=== PATIENT | female | born 1980 | race African-American/Black ===

== ENCOUNTER 2025-07-22 00:22 | Emergency (ER) | payer MEDICAID ==
[~2025-07-22] VITALS: Ht 162.6 cm; Wt 56.7 kg
[2025-07-22] MEDS ORDERED: Naloxone Hydrochloride 2 MG/2 ML SYR NAS ONE (01:35)
[2025-07-22 04:52] LABS: BASO # 0.1 10*3/uL (0.0-0.1); BASO % 1.2 % (0.0-1.0); EOS # 0.1 10*3/uL (0.0-0.4); EOS % 0.9 % (1.0-4.0); MEAN CELL VOLUME 97.4 fl (81.0-99.0); MEAN CORPUSCULAR HGB 32.5 pg (27.0-31.0); MEAN PLATELET VOLUME 9.6 fl (9.6-12.3); MONO # 0.3 10*3/uL (0.1-1.0); MONO % 5.6 % (3.0-9.0); NEUT # 2.3 10*3/uL (2.3-7.9); NEUT % 40.3 % (47.0-73.0); NUCLEATED RED BLOOD CELL 0.0 % (0.0-0.0); NUCLEATED RED BLOOD CELL 0.0 10*3/uL (0.0-0.0); PLATELET COUNT AUTOMATED 299 10*3/uL (130-400); RED CELL DISTRI WIDTH 15.1 % (0-14.5)
[2025-07-22 05:10] LABS: BUN 11 mg/dl (9-23)
== END 2025-07-22 11:49 | disposition home or self-care (01) ==
LOC: ED 00:22
PROVIDERS: Internal Medicine
DX: F10.129 Alcohol abuse with intoxication, unspecified (principal); Y90.8 Blood alcohol level of 240 mg/100 ml or more; R45.1 Restlessness and agitation; R40.4 Transient alteration of awareness

== ENCOUNTER 2025-09-21 11:32 | Emergency (ER) | payer MEDICAID ==
[~2025-09-21] VITALS: Ht 157.4 cm; Wt 44.5 kg
[2025-09-21] MEDS ORDERED: SODIUM CHLORIDE 0.9% 1,000 ML IV ONE (12:00)
[2025-09-21] MEDS ORDERED: Ondansetron Hydrochloride 4 MG/2 ML VIAL IV ONE (12:00)
[2025-09-21] MEDS ORDERED: Lidocaine Hydrochloride 30 ML VIAL SC ONE (14:00)
[2025-09-21] MEDS ORDERED: HYDROCODONE-AC1 EAC1 PO (15:32)
[2025-09-21] MEDS ORDERED: NAPROSYN500 MG PO (15:32)
== END 2025-09-21 15:49 | disposition home or self-care (01) ==
LOC: ED 11:32
DX: S52.121A Displaced fracture of head of right radius, initial encounter for closed fracture (principal); W20.8XXA Other cause of strike by thrown, projected or falling object, initial encounter; Y93.89 Activity, other specified; Y92.89 Other specified places as the place of occurrence of the external cause; Y99.8 Other external cause status

== ENCOUNTER → 2025-10-17 | Outpatient (CLI) | payer MEDICAID ==
[~2025-10-17] MED LIST: HYDROCODONE-AC1 EAC1 PO; NAPROSYN500 MG PO; OXYCODONE-ACET1 EAC3 PO
== END | disposition home or self-care (01) ==
LOC: ORTHO 02:51
PROVIDERS: ATTEND Orthopaedic Surgery
DX: S52.371A Galeazzi's fracture of right radius, initial encounter for closed fracture (principal); X58.XXXA Exposure to other specified factors, initial encounter; Y93.89 Activity, other specified; Y92.89 Other specified places as the place of occurrence of the external cause; Y99.8 Other external cause status

== ENCOUNTER 2025-10-26 14:12 | Emergency (ER) | payer MEDICAID ==
[~2025-10-26] VITALS: Wt 46.3 kg
[2025-10-26] MEDS ORDERED: SODIUM CHLORIDE 0.9% 1,000 ML IV ONE ×3 (15:25→18:50)
[2025-10-26 15:30] LABS: BILIRUBIN Negative (Negative); BLOOD Trace-Lysed (Negative); CLARITY Cloudy (Clear); COLOR Yellow (Yellow); KETONE Negative (Negative); LEUKO ESTERASE 3+ (Negative); NITRITE Negative (Negative); PH 5.0 (4.5-8.0); SPECIFIC GRAVITY <= 1.005 (1.001-1.030); UROBILINOGEN 0.2 E.U./dl (0.0-1.0)
[2025-10-26 15:41] LABS: BACTERIA 3+; WBC 51-100 wbc/hpf (0-5)
[2025-10-26 15:52] LABS: MEAN CELL VOLUME 104.9 fl (81.0-99.0); MEAN CORPUSCULAR HGB 34.1 pg (27.0-31.0); MEAN PLATELET VOLUME 10.6 fl (9.6-12.3); NUCLEATED RED BLOOD CELL 0.0 % (0.0-0.0); NUCLEATED RED BLOOD CELL 0.0 10*3/uL (0.0-0.0); PLATELET COUNT AUTOMATED 104 10*3/uL (130-400); RED CELL DISTRI WIDTH 14.0 % (0-14.5)
[2025-10-26 16:16] LABS: BUN 30.0 mg/dl (9-23); MANUAL DIFF REFLEX YES; SGPT/ALT 15.0 U/L (5-49)
[2025-10-26 16:40] LABS: PLATELET SUFFICIENCY LOW (NORMAL)
[2025-10-26 16:42] LABS: VACUOLATION OF NEUTROPHILS SLIGHT
[2025-10-26] MEDS ORDERED: MAGNESIUM SULFATE 50 ML IV ONE (17:10)
[2025-10-26] MEDS ORDERED: ACETAMINOPHEN 100 ML IV ONE (19:25)
[2025-10-26 20:17] LABS: URINE AMPHETAMINES Negative (1000ng/ml); URINE BARBITURATES Negative (200ng/ml); URINE BENZODIAZEPINES Negative (200ng/ml); URINE CANNABINOIDS (THC) Negative (50ng/ml); URINE COCAINE Negative (300ng/ml); URINE METHADONE Negative (300ng/ml); URINE OPIATES Negative (300ng/ml); URINE PHENCYCLIDINE Negative (25ng/ml)
== END 2025-10-27 03:36 | disposition short-term general hospital (02) ==
LOC: ED 14:12
PROVIDERS: Nurse Practitioner Family; Student in an Organized Health Care Education/Training Program
DX: A41.9 Sepsis, unspecified organism (principal); R65.20 Severe sepsis without septic shock; Z79.899 Other long term (current) drug therapy; N30.90 Cystitis, unspecified without hematuria; N72 Inflammatory disease of cervix uteri

== ENCOUNTER → 2025-11-14 | Outpatient (CLI) | payer MEDICAID | END | disposition home or self-care (01) | LOC: ORTHO 02:53 | PROVIDERS: ATTEND Orthopaedic Surgery | DX: S52.371D Galeazzi's fracture of right radius, subsequent encounter for closed fracture with routine healing (principal); Z96.7 Presence of other bone and tendon implants; X58.XXXD Exposure to other specified factors, subsequent encounter ==